=== PATIENT | female | born 1985 | race Asian ===

== ENCOUNTER 2021-03-25 12:04 | Emergency (ER) | payer OTHER ==
[~2021-03-25] VITALS: Ht 154.9 cm; Wt 58.5 kg
[2021-03-25 14:20] VITALS: BP_SYST 143; BP_SYST 147; BP_DIAS 83
[2021-03-25 15:26] VITALS: BP 143/83
--- NOTE | 2021-03-25 15:33 | DIREP ---
PROCEDURE:US THYROID TECHNIQUE:Thyroid ultrasound was performed with a high-frequency transducer. COMPARISON:None. INDICATIONS:anterior neck lump, 6 months, ER FINDINGS: THYROID OVERVIEW Right lobe - size: 5.0 x 2.0 x 1.2 cm, 1 nodule Isthmus - size: 0.2 cm, 0 nodules Left lobe - size: 4.7 x 1.3 x 1.2 cm, 1 nodule THYROID NODULES Right Lobe, #1, Lower 1/3, size: 1.8 x 1.4 x 2.0 cm, Description: mixed cystic and solid, hypoechoic, [id number], smooth, punctate echogenic foci TI-RADS: 4, Recommendation: FNA Left Lobe, #1, Lower 1/3, size: 0.6 x 0.3 x 0.3 cm, Description: solid or almost completely solid, hypoechoic, [id number]-[id number], smooth TI-RADS: 4, Recommendation: does not meet size criteria for F/U or FNA TI-RADS: 1 = Benign, 2 = Not Suspicious, 3 = Mildly Suspicious, 4 = Moderately Suspicious, 5 = Highly Suspicious Reference: 2017 JACR, ACR Thyroid Imaging, Reporting and Data System (TIRADS): White Paper of the ACR TI-RADS Committee. OTHER:No additional findings. CONCLUSION: 1. FNA of 1 nodule recommended (see above). Dictated by: Patti Lee MD on 03/25/2021 at 03:29 PM
--- NOTE | 2021-03-25 15:59 | ER.PDOC ---
General Chief Complaint: Requesting Medical Care Stated Complaint: LUMP ON NECK TRAVEL OUT OF US: No Time seen by MD: 15:54 Source: patient Exam Limitations: no limitations History of Present Illness Initial Comments Painless lump anterior neck for 6 months. Severity: moderate Associated Symptoms: denies symptoms Past Medical History Medical History: no pertinent history Surgical History: no surgical history Family History Significant Family History: no pertinent family hx Social History Smoking: non-smoker Alcohol Use: none Drug Use: none Review of Systems Constitutional: no symptoms reported EENTM: see HPI Respiratory: no symptoms reported Cardiovascular: no symptoms reported Gastrointestinal: no symptoms reported All Other Systems: Reviewed and Negative Physical Exam General Appearance: No Apparent Distress, WD/WN EENT: eyes nml inspection Neck: Other (Thyroid lump about 2 x 2 cm which is soft and movable. No tenderness. 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 NML as Tested, No Motor/Sensory Deficits Skin: Normal Color Results/Orders Results/Orders Orders - HINA BACK MD Us Thyroid (03/25/21 14:55) Vital Signs Date Time Temp Pulse Resp B/P (MAP) Pulse Ox O2 Delivery O2 Flow Rate FiO2 03/25/21 15:26 99.0 83 20 143/83 (103) Room Air 03/25/21 14:20 99.0 83 20 143/83 (103) Room Air 03/25/21 14:20 99.0 83 20 03/25/21 14:20 99.0 83 20 Progress Progress FINDINGS: THYROID OVERVIEW Right lobe - size: 5.0 x 2.0 x 1.2 cm, 1 nodule Isthmus - size: 0.2 cm, 0 nodules Left lobe - size: 4.7 x 1.3 x 1.2 cm, 1 nodule THYROID NODULES Right Lobe, #1, Lower 1/3, size: 1.8 x 1.4 x 2.0 cm, Description: mixed cystic and solid, hypoechoic, [id number]-qthe-[id number], smooth, punctate echogenic foci TI-RADS: 4, Recommendation: FNA Left Lobe, #1, Lower 1/3, size: 0.6 x 0.3 x 0.3 cm, Description: solid or almost completely solid, hypoechoic, wrier-jdig-qwsf, smooth TI-RADS: 4, Recommendation: does not meet size criteria for F/U or FNA TI-RADS: 1 = Benign, 2 = Not Suspicious, 3 = Mildly Suspicious, 4 = Moderately Suspicious, 5 = Highly Suspicious Reference: 2017 JACR, ACR Thyroid Imaging, Reporting and Data System (TIRADS): White Paper of the ACR TI-RADS Committee. OTHER:No additional findings. CONCLUSION: 1. FNA of 1 nodule recommended (see above). Reviewed results with the patient she understands that she has to follow-up with a surgeon for fine-needle aspiration and further evaluation. ER DEPART Departure Time of Disposition: 15:58 Disposition: 01 HOME / SELF CARE / HOMELESS Impression: Primary Impression: Thyroid lump Condition: Stable Additional Instructions: Follow-up with a surgeon in 2 to 3 days Return to ED if worsening or concerns Duration or Time Spent with Pa: 20 min HINA BACK MD Mar 25, 2021 15:59
== END 2021-03-25 15:59 | disposition home or self-care (01) ==
LOC: ER 12:04
DX: R22.1 Localized swelling, mass and lump, neck (principal)
CPT/HCPCS: 76536; 99284

== ENCOUNTER → 2021-06-19 | Outpatient (CLI) | payer OTHER ==
--- NOTE | 2021-06-19 16:47 | DIREP ---
PROCEDURE:US THYROID TECHNIQUE:Thyroid ultrasound was performed with a high-frequency transducer. COMPARISON:[facility], [place], US THYROID, 03/25/2021, 02:57 PM. INDICATIONS:MASS RT NECK FINDINGS: THYROID OVERVIEW Right lobe - size: 4.9 x 1.5 x 1.7 cm, homogeneous, 1 nodule Isthmus - size: 0.2 cm, homogeneous, 0 nodules Left lobe - size: 4.7 x 0.9 x 1.2 cm, homogeneous, 0 nodules THYROID NODULES Right Lobe, #1, Lower 1/3, size: 1.9 x 1.3 x 1.8 cm, prior size: 1.8 x 1.4 x 2.0 cm Description: solid or almost completely solid, isoechoic, hemoz-pehe-absl, ill-defined, punctate echogenic foci TI-RADS: 4, Recommendation: FNA TI-RADS: 1 = Benign, 2 = Not Suspicious, 3 = Mildly Suspicious, 4 = Moderately Suspicious, 5 = Highly Suspicious Reference: 2017 JACR, ACR Thyroid Imaging, Reporting and Data System (TIRADS): White Paper of the ACR TI-RADS Committee. OTHER:Previously identified left nodule (1) was not identified on today's exam. No additional findings. CONCLUSION: 1. FNA of 1 nodule recommended (see above). Dictated by: BRIDGETTE Physician on 06/19/2021 at 04:13 PM ac
== END | disposition home or self-care (01) ==
LOC: RAD 15:03
PROVIDERS: ATTEND Family Medicine
DX: R04.1 Hemorrhage from throat (principal)
CPT/HCPCS: 76536